=== PATIENT | female | born 1960 | race Caucasian/White ===

== ENCOUNTER 2022-05-13 14:59 | Outpatient (CLI) | payer BC | END 2022-05-13 15:00 | disposition home or self-care (01) | LOC: CSHLAB 14:59 | PROVIDERS: ATTEND Surgery Surgery of the Hand | DX: Z01.818 Encounter for other preprocedural examination (principal); R22.31 Localized swelling, mass and lump, right upper limb | CPT/HCPCS: 93005; 93010 ==